=== PATIENT | female | born 1955 | race Caucasian/White ===

== ENCOUNTER 2017-03-08 12:20 | Day surgery (SDC) | payer OTHER ==
[~2017-03-08] VITALS: Ht 154.9 cm; Wt 96.5 kg
[~2017-03-08 12:20] MED LIST: DEXL60CA3; FAMO40 PO; HYDR1TAB94; METF500; MULVITA; NORT50; OMEP20ER; ONDA8ODT MM; OXYACE5T PO; ROSU5 PO; RXONDA4ODT MM; SERT50
== END 2017-03-08 16:52 | disposition home or self-care (01) ==
LOC: ORSCSDS 12:20
PROVIDERS: Podiatrist Foot & Ankle Surgery
PROC: 0LBT0ZZ Excision of Left Ankle Tendon, Open Approach (ICD-10-PCS; principal; 2017-03-08 13:45)
PROC: 0LQT0ZZ Repair Left Ankle Tendon, Open Approach (ICD-10-PCS; principal; 2017-03-08 13:45)
DX: M66.862 Spontaneous rupture of other tendons, left lower leg (principal); M77.42 Metatarsalgia, left foot; E66.01 Morbid (severe) obesity due to excess calories; Z68.41 Body mass index [BMI] 40.0-44.9, adult; Z87.891 Personal history of nicotine dependence; J45.909 Unspecified asthma, uncomplicated; Z79.899 Other long term (current) drug therapy
CPT/HCPCS: 88304; J0171; J0690; J1100; J2250; J2405; J3010; J7120

== ENCOUNTER → 2019-02-11 | Outpatient (CLI) | payer BC ==
[~2019-02-11] MED LIST changes: +ACIDOPHILUS1 EACH PO; +ALBU90OI INH; +ALPR.5 PO; +L-Lysine500 M1 PO; +METPHE5; +MULTIPLE VITAM1 EACH PO; +Mobic15 MG PO; +Norco 5-325 Ta1 EACH PO; +Nortriptyline H75 MG PO; +PANT40 PO; +RISP.5 PO; +SERT100 PO; +SPIR50 PO
== END | disposition home or self-care (01) ==
LOC: LAB SHORT 11:42 → PLD 11:42
DX: D22.61 Melanocytic nevi of right upper limb, including shoulder (principal); L81.4 Other melanin hyperpigmentation
CPT/HCPCS: 88305

== ENCOUNTER → 2019-02-18 | Outpatient (CLI) | payer BC | END | disposition home or self-care (01) | LOC: LAB SHORT 10:47 → PLD 10:47 | DX: D22.71 Melanocytic nevi of right lower limb, including hip (principal); D22.5 Melanocytic nevi of trunk | CPT/HCPCS: 88305; 88313 ==

== ENCOUNTER → 2019-02-24 | Outpatient (CLI) | payer BC | END | disposition home or self-care (01) | LOC: PLD 07:39 → LAB SHORT 07:39 | DX: D48.5 Neoplasm of uncertain behavior of skin (principal) | CPT/HCPCS: 88305 ==

== ENCOUNTER 2019-04-02 06:52 | Day surgery (SDC) | payer BC ==
[~2019-04-02] VITALS: Ht 154.9 cm; Wt 104.9 kg
--- NOTE | 2019-04-02 08:15 | NUR ---
04/02/19 0815 Traci Madrigal NEW RED/YELLOW PEDIATRIC SCOPE USED
== END 2019-04-02 09:11 | disposition home or self-care (01) ==
LOC: ORSCSDS 06:52
PROVIDERS: Student in an Organized Health Care Education/Training Program
PROC: 0DJD8ZZ Inspection of Lower Intestinal Tract, Via Natural or Artificial Opening Endoscopic (ICD-10-PCS; principal; 2019-04-02 08:00)
PROC: 0DB68ZX Excision of Stomach, Via Natural or Artificial Opening Endoscopic, Diagnostic (ICD-10-PCS; principal; 2019-04-02 08:00)
PROC: 0DB58ZX Excision of Esophagus, Via Natural or Artificial Opening Endoscopic, Diagnostic (ICD-10-PCS; principal; 2019-04-02 08:00)
PROC: 0DB78ZX Excision of Stomach, Pylorus, Via Natural or Artificial Opening Endoscopic, Diagnostic (ICD-10-PCS; principal; 2019-04-02 08:00)
DX: K21.9 Gastro-esophageal reflux disease without esophagitis (principal); R13.10 Dysphagia, unspecified; K20.8 Other esophagitis; Z86.010 Personal history of colon polyps; Z80.0 Family history of malignant neoplasm of digestive organs; E11.9 Type 2 diabetes mellitus without complications; E78.5 Hyperlipidemia, unspecified; E66.01 Morbid (severe) obesity due to excess calories; Z68.41 Body mass index [BMI] 40.0-44.9, adult; Z79.899 Other long term (current) drug therapy
CPT/HCPCS: 82947; 88305; 88312; 88341; 88342; J2250; J2405; J2704; J7120

== ENCOUNTER → 2019-07-28 | Outpatient (CLI) | payer BC ==
[2019-07-28 15:57] LABS: BASOPHILS ABSOLUTE AUTO 0.06 K/mm3 (0.00-0.23); BASOPHILS PERCENT AUTO 1 % (0-2); EOSINOPHILS ABSOLUTE AUTO 0.05 K/mm3 (0.00-0.68); EOSINOPHILS PERCENT AUTO 1 % (0-6); Hematocrit 38.9 % (33.0-51.0); IMMATURE GRAN ABSOLUTE AUTO 0.07 K/mm3 (0.00-0.10); IMMATURE GRAN PERCENT AUTO 1 % (0-1); LYMPHOCYTES ABSOLUTE AUTO 1.25 K/mm3 (0.84-5.20); LYMPHOCYTES PERCENT AUTO 11 % (21-46); MONOCYTES ABSOLUTE AUTO 0.56 K/mm3 (0.16-1.47); MONOCYTES PERCENT AUTO 5 % (4-13); Mean Corpuscular HGB 28.3 pg (26.0-34.0); Mean Corpuscular HGB Conc 33.4 g/dL (31.5-36.5); Mean Corpuscular Volume 85 fL (80-100); Mean Platelet Volume 10.8 fL (9.1-12.4); NEUTROPHILS ABSOLUTE AUTO 8.93 K/mm3 (1.96-9.15); NEUTROPHILS PERCENT AUTO 82 % (41-73); Platelet Count 212 K/mm3 (150-400); RDW Coefficient Variation 13.2 % (11.7-14.2); RDW Standard Deviation 41.1 fL (35.1-46.3); Red Blood Cell Count 4.59 M/mm3 (3.80-5.20); White Blood Cell Count 10.92 K/mm3 (4.00-11.30)
[2019-07-28 16:19] LABS: Anion Gap 7 mmol/L (6-16); Blood Urea Nitrogen 18 mg/dL (8-24); Bun/Creatinine Ratio 28.2 (12.0-20.0); CO2, Blood 26 mmol/L (21-32); Calcium, Blood 9.6 mg/dL (8.5-10.1); Chloride, Blood 100 mmol/L (98-108); Creatinine, Blood 0.64 mg/dL (0.40-1.00); Glomerular Filtration Rate >60 (60-); Glucose, Blood 117 mg/dL (70-99); Potassium, Blood 3.8 mmol/L (3.5-5.5); Sodium, Blood 133 mmol/L (136-145)
== END ==
LOC: LAB 15:50 → LAB SHORT 15:50
PROVIDERS: Physician Assistant
DX: R53.83 Other fatigue (principal); R50.9 Fever, unspecified
CPT/HCPCS: 80048; 85025

== ENCOUNTER → 2019-09-09 | Outpatient (CLI) | payer BC | END | disposition home or self-care (01) | LOC: LAB SHORT 13:55 → PLD 13:55 | DX: D22.61 Melanocytic nevi of right upper limb, including shoulder (principal) | CPT/HCPCS: 88305 ==

== ENCOUNTER → 2019-10-10 | Outpatient (CLI) | payer BC | END | disposition home or self-care (01) | LOC: LAB 14:52 → LAB SHORT 14:52 | DX: N39.0 Urinary tract infection, site not specified (principal) | CPT/HCPCS: 87086 ==

== ENCOUNTER → 2019-10-16 | Outpatient (CLI) | payer BC | END | disposition home or self-care (01) | LOC: LAB 16:30 → LAB SHORT 16:30 | DX: R10.9 Unspecified abdominal pain (principal); R30.0 Dysuria | CPT/HCPCS: 87086 ==

== ENCOUNTER 2020-01-20 07:13 | Day surgery (SDC) | payer BC ==
[~2020-01-20] VITALS: Ht 154.9 cm; Wt 109.8 kg
[2020-01-20] MEDS ORDERED: FAMO20 PO (07:43)
[2020-01-20] MEDS ORDERED: ASPI81CH PO (07:44)
[2020-01-20] MEDS ORDERED: BENADRYL25 M1 PO (07:44)
[2020-01-20] MEDS ORDERED: L-Lysine500 M1 PO (07:44)
[2020-01-20] MEDS ORDERED: VITAMIN D310 MC4 PO (07:45)
== END 2020-01-20 10:20 | disposition home or self-care (01) ==
LOC: ORSCSDS 07:13
PROVIDERS: Ophthalmology
PROC: 08RK3JZ Replacement of Left Lens with Synthetic Substitute, Percutaneous Approach (ICD-10-PCS; principal; 2020-01-20 08:30)
DX: H25.12 Age-related nuclear cataract, left eye (principal); Z99.81 Dependence on supplemental oxygen; G47.33 Obstructive sleep apnea (adult) (pediatric); Z87.891 Personal history of nicotine dependence; J44.9 Chronic obstructive pulmonary disease, unspecified; E66.01 Morbid (severe) obesity due to excess calories; Z68.42 Body mass index [BMI] 45.0-49.9, adult; J45.909 Unspecified asthma, uncomplicated; Z79.82 Long term (current) use of aspirin; Z79.899 Other long term (current) drug therapy
CPT/HCPCS: 82947; J2001; J2250; J3010; J3301; J7040; V2632

== ENCOUNTER → 2020-02-09 | Outpatient (CLI) | payer BC ==
[~2020-02-09] MED LIST changes: +ASPI81CH PO; +BENADRYL25 M1 PO; +FAMO20 PO; +VITAMIN D310 MC4 PO
== END | disposition home or self-care (01) ==
LOC: LAB SHORT 08:27 → PLD 08:27
DX: D22.61 Melanocytic nevi of right upper limb, including shoulder (principal)
CPT/HCPCS: 88305

== ENCOUNTER → 2020-05-24 | Outpatient (CLI) | payer BC ==
[2020-05-24 14:58] LABS: Source, Urine Clean Catch
[2020-05-24 17:12] LABS: Appearance, Urine Clear (Clear); Bilirubin, Urine Neg (Neg); Blood, Urine Neg (Neg); Color, Urine Yellow (P-Yellow); Glucose Qualitative, Urine Neg (Neg); Ketones, Urine Neg (Neg); Leukocyte Esterase, Urine Neg (Neg); Nitrite, Urine Neg (Neg); Protein, Urine Neg (Neg); Urobilinogen, Urine NORM (Normal)
== END ==
LOC: LAB SHORT 14:45 → LAB 14:45 → LAB FUT 05-12 15:45
PROVIDERS: Internal Medicine
DX: N39.0 Urinary tract infection, site not specified (principal); Z88.1 Allergy status to other antibiotic agents; Z88.8 Allergy status to other drugs, medicaments and biological substances; Z91.040 Latex allergy status
CPT/HCPCS: 81003

== ENCOUNTER → 2020-05-28 | Outpatient (CLI) | payer BC ==
[2020-05-29 19:39] LABS: Adenovirus F 40/41 Not Detected (NOT DETECT); Astrovirus Not Detected (NOT DETECT); Campylobacter Sp Not Detected (NOT DETECT); Cryptosporidium Not Detected (NOT DETECT); Cyclospora Cayetanensis Not Detected (NOT DETECT); E. Coli O157 Not Detected (NOT DETECT); Entamoeba Histolytica Not Detected (NOT DETECT); Enteroaggregative E. coli-EAEC Not Detected (NOT DETECT); Enteropathogenic E. coli-EPEC Not Detected (NOT DETECT); Enterotoxigenic E. coli-ETEC Not Detected (NOT DETECT); Giardia Lamblia Not Detected (NOT DETECT); Norovirus GI/GII Not Detected (NOT DETECT); Plesiomonas Shigelloides Not Detected (NOT DETECT); Rotavirus A Not Detected (NOT DETECT); Salmonella Sp Not Detected (NOT DETECT); Sapovirus Not Detected (NOT DETECT); Shiga Toxin-prod E. coli-STEC Not Detected (NOT DETECT); Shigella/Enteroin E. coli-EIEC Not Detected (NOT DETECT); Vibrio Cholerae Not Detected (NOT DETECT); Vibrio Sp Not Detected (NOT DETECT); Yersinia Enterocolitica Not Detected (NOT DETECT)
== END | disposition home or self-care (01) ==
LOC: LAB SHORT 17:00 → LAB 17:00
PROVIDERS: Physician Assistant
DX: R19.7 Diarrhea, unspecified (principal)
CPT/HCPCS: 0097U

== ENCOUNTER 2020-06-28 09:09 | Day surgery (SDC) | payer BC ==
[~2020-06-28] VITALS: Ht 154.9 cm; Wt 106.4 kg
== END 2020-06-28 11:35 | disposition home or self-care (01) ==
LOC: ORSCSDS 09:09
PROVIDERS: Student in an Organized Health Care Education/Training Program
PROC: 0DBN8ZX Excision of Sigmoid Colon, Via Natural or Artificial Opening Endoscopic, Diagnostic (ICD-10-PCS; principal; 2020-06-28 10:30)
PROC: 0DBK8ZX Excision of Ascending Colon, Via Natural or Artificial Opening Endoscopic, Diagnostic (ICD-10-PCS; principal; 2020-06-28 10:30)
PROC: 0DB68ZX Excision of Stomach, Via Natural or Artificial Opening Endoscopic, Diagnostic (ICD-10-PCS; principal; 2020-06-28 10:30)
PROC: 0DBL8ZX Excision of Transverse Colon, Via Natural or Artificial Opening Endoscopic, Diagnostic (ICD-10-PCS; principal; 2020-06-28 10:30)
DX: K21.9 Gastro-esophageal reflux disease without esophagitis (principal); K29.70 Gastritis, unspecified, without bleeding; K31.819 Angiodysplasia of stomach and duodenum without bleeding; D12.2 Benign neoplasm of ascending colon; D12.3 Benign neoplasm of transverse colon; Z12.11 Encounter for screening for malignant neoplasm of colon; Z80.0 Family history of malignant neoplasm of digestive organs; Z86.010 Personal history of colon polyps; I10 Essential (primary) hypertension; F90.9 Attention-deficit hyperactivity disorder, unspecified type; K76.0 Fatty (change of) liver, not elsewhere classified; F32.9 Major depressive disorder, single episode, unspecified; E66.01 Morbid (severe) obesity due to excess calories; Z68.41 Body mass index [BMI] 40.0-44.9, adult; Z79.899 Other long term (current) drug therapy; Z79.82 Long term (current) use of aspirin
CPT/HCPCS: 88305; 88341; 88342; A9270; J2704

== ENCOUNTER → 2020-10-31 | Outpatient (CLI) | payer SELFPAY ==
[2020-10-31 14:48] LABS: Source, Urine Clean Catch
[2020-10-31 17:49] LABS: Appearance, Urine Clear (Clear); Bilirubin, Urine Neg (Neg); Blood, Urine Neg (Neg); Color, Urine Yellow (P-Yellow); Glucose Qualitative, Urine Neg (Neg); Ketones, Urine Neg (Neg); Leukocyte Esterase, Urine 2+ (Neg); Nitrite, Urine Pos (Neg); Protein, Urine 1+ (Neg); Urobilinogen, Urine NORM (Normal)
[2020-10-31 18:11] LABS: Bacteria Many /hpf; Red Blood Cells, Urine Not Seen /hpf (0-2); Squamous Epithelial Cells Rare /hpf (Few)
== END | disposition home or self-care (01) ==
LOC: LAB SHORT 14:43 → LAB 14:43
PROVIDERS: Urology Female Pelvic Medicine and Reconstructive Surgery
DX: N39.0 Urinary tract infection, site not specified (principal)
CPT/HCPCS: 81001; 87077; 87086; 87186

== ENCOUNTER → 2021-01-31 | Outpatient (CLI) | payer BC | END | disposition home or self-care (01) | LOC: LAB SHORT 14:48 → LAB 14:48 | DX: D22.72 Melanocytic nevi of left lower limb, including hip (principal) | CPT/HCPCS: 88305 ==

== ENCOUNTER 2021-03-07 10:50 | Day surgery (SDC) | payer BC ==
[~2021-03-07] VITALS: Ht 154.9 cm; Wt 109.9 kg
--- NOTE | 2021-03-07 11:44 | NUR ---
03/07/21 1144 Stacy Beck PRP SENT TO THE OR
== END 2021-03-07 14:38 | disposition home or self-care (01) ==
LOC: ORSCSDS 10:50
PROVIDERS: Orthopaedic Surgery
PROC: 0RNK4ZZ Release Left Shoulder Joint, Percutaneous Endoscopic Approach (ICD-10-PCS; principal; 2021-03-07 12:30)
PROC: 0LM24ZZ Reattachment of Left Shoulder Tendon, Percutaneous Endoscopic Approach (ICD-10-PCS; principal; 2021-03-07 12:30)
DX: M75.122 Complete rotator cuff tear or rupture of left shoulder, not specified as traumatic (principal); S46.002A Unspecified injury of muscle(s) and tendon(s) of the rotator cuff of left shoulder, initial encounter; M75.22 Bicipital tendinitis, left shoulder; M75.42 Impingement syndrome of left shoulder; I10 Essential (primary) hypertension; J44.9 Chronic obstructive pulmonary disease, unspecified; Z87.891 Personal history of nicotine dependence; E66.01 Morbid (severe) obesity due to excess calories; Z68.42 Body mass index [BMI] 45.0-49.9, adult; F33.9 Major depressive disorder, recurrent, unspecified; Z79.899 Other long term (current) drug therapy; Z79.82 Long term (current) use of aspirin
CPT/HCPCS: 82947; C1713; J0171; J0690; J1100; J2250; J2405; J2704; J3010; J7120

== ENCOUNTER → 2021-08-24 | Outpatient (CLI) | payer SELFPAY ==
[2021-08-24 13:42] LABS: Source, Urine Clean Catch
[2021-08-24 15:19] LABS: Appearance, Urine Hazy (Clear); Bilirubin, Urine Neg (Neg); Blood, Urine 1+ (Neg); Color, Urine Amber (P-Yellow); Glucose Qualitative, Urine Neg (Neg); Ketones, Urine Neg (Neg); Leukocyte Esterase, Urine 3+ (Neg); Nitrite, Urine Pos (Neg); Protein, Urine 1+ (Neg); Urobilinogen, Urine NORM (Normal)
[2021-08-24 15:30] LABS: Bacteria Many /hpf; Hyaline Casts 0-2 /lpf (0-2); Squamous Epithelial Cells Mod /hpf (Few); Transitional Epithelial Cells Rare /hpf (0-Rare); White Blood Cells, Urine 25-50 /hpf (0-5)
== END | disposition home or self-care (01) ==
LOC: LAB SHORT 13:41 → LAB 13:41
PROVIDERS: Urology Female Pelvic Medicine and Reconstructive Surgery
DX: N39.0 Urinary tract infection, site not specified (principal)
CPT/HCPCS: 81001; 87077; 87086; 87147; 87186

== ENCOUNTER 2021-12-17 17:12 | Emergency (ER) | payer MEDICARE ==
[~2021-12-17] VITALS: Ht 154.9 cm; Wt 111.1 kg
[2021-12-17] MEDS ORDERED: TRULICITY0.75 MG/01 SC (17:36)
[2021-12-17] MEDS ORDERED: VITAMIN D31000 UNI1 PO (17:36)
[2021-12-17] MEDS ORDERED: ASCO500 PO (17:36)
== END 2021-12-17 20:18 | disposition home or self-care (01) ==
LOC: ER 17:12
DX: M79.661 Pain in right lower leg (principal); Z88.0 Allergy status to penicillin; Z88.8 Allergy status to other drugs, medicaments and biological substances; Z91.040 Latex allergy status; Z79.899 Other long term (current) drug therapy; Z96.653 Presence of artificial knee joint, bilateral; Z87.891 Personal history of nicotine dependence
CPT/HCPCS: 36415; 93971; 99283-25

== ENCOUNTER → 2022-01-12 | Outpatient (CLI) | payer MEDICARE ==
[~2022-01-12] MED LIST changes: +ASCO500 PO; +TRULICITY0.75 MG/01 SC; +VITAMIN D31000 UNI1 PO
[2022-01-12 16:49] LABS: Source, Urine Clean Catch
[2022-01-12 18:54] LABS: Appearance, Urine Clear (Clear); Bilirubin, Urine Neg (Neg); Blood, Urine Neg (Neg); Color, Urine Yellow (P-Yellow); Glucose Qualitative, Urine Neg (Neg); Ketones, Urine Neg (Neg); Leukocyte Esterase, Urine Neg (Neg); Nitrite, Urine Neg (Neg); Protein, Urine Neg (Neg); Urobilinogen, Urine NORM (Normal)
== END | disposition home or self-care (01) ==
LOC: LAB SHORT 16:48 → LAB 16:48 → LAB FUT 01-01 08:40
PROVIDERS: Internal Medicine
DX: N39.0 Urinary tract infection, site not specified (principal); R30.0 Dysuria
CPT/HCPCS: 81003

== ENCOUNTER 2023-02-09 11:27 | Emergency (ER) | payer MEDICARE ==
[~2023-02-09] VITALS: Ht 154.9 cm; Wt 107.5 kg
[2023-02-09 13:28] VITALS: BP 138/72
== END 2023-02-09 13:29 | disposition home or self-care (01) ==
LOC: ER 11:27
DX: H57.12 Ocular pain, left eye (principal); I51.89 Other ill-defined heart diseases; J44.9 Chronic obstructive pulmonary disease, unspecified; Z77.098 Contact with and (suspected) exposure to other hazardous, chiefly nonmedicinal, chemicals; Z88.8 Allergy status to other drugs, medicaments and biological substances; Z88.1 Allergy status to other antibiotic agents; Z91.040 Latex allergy status; Z79.899 Other long term (current) drug therapy; Z87.891 Personal history of nicotine dependence
CPT/HCPCS: 99283; A9270

== ENCOUNTER 2024-03-25 23:16 | Emergency (ER) | payer MEDICARE, BC ==
[~2024-03-25] VITALS: Ht 154.9 cm; Wt 113.4 kg
[2024-03-26] MEDS ORDERED: CEPH500 PO (03:21)
[2024-03-26] MEDS ORDERED: Diphth,Pertuss(Acell),Tet Vac 0.5 ML VIAL IM ONE (03:30)
[2024-03-26] MEDS ORDERED: Cephalexin Monohydrate 500 MG Cap PO ONE (03:30)
[2024-03-26 03:56] VITALS: BP 143/64
== END 2024-03-26 03:59 | disposition home or self-care (01) ==
LOC: ER 23:16
DX: S61.211A Laceration without foreign body of left index finger without damage to nail, initial encounter (principal); J44.9 Chronic obstructive pulmonary disease, unspecified; M19.90 Unspecified osteoarthritis, unspecified site; W26.8XXA Contact with other sharp object(s), not elsewhere classified, initial encounter; Z23 Encounter for immunization; Z87.891 Personal history of nicotine dependence; Z79.899 Other long term (current) drug therapy; Z91.040 Latex allergy status; Z88.0 Allergy status to penicillin; Z88.8 Allergy status to other drugs, medicaments and biological substances
CPT/HCPCS: 12002; 73140; 90471; 90715; 99283-25; A9270

== ENCOUNTER → 2024-04-21 | Outpatient (CLI) | payer MEDICARE, BC ==
[~2024-04-21] MED LIST changes: +CEPH500 PO
[2024-04-23 17:00] LABS: Adenovirus F 40/41 Not Detected (NOT DETECT); Astrovirus Not Detected (NOT DETECT); Campylobacter Sp Not Detected (NOT DETECT); Cryptosporidium Not Detected (NOT DETECT); Cyclospora Cayetanensis Not Detected (NOT DETECT); E. Coli O157 Not Detected (NOT DETECT); Entamoeba Histolytica Not Detected (NOT DETECT); Enteroaggregative E. coli-EAEC Not Detected (NOT DETECT); Enteropathogenic E. coli-EPEC Not Detected (NOT DETECT); Enterotoxigenic E. coli-ETEC Not Detected (NOT DETECT); Giardia Lamblia Not Detected (NOT DETECT); Norovirus GI/GII Not Detected (NOT DETECT); Plesiomonas Shigelloides Not Detected (NOT DETECT); Rotavirus A Not Detected (NOT DETECT); Salmonella Sp Not Detected (NOT DETECT); Sapovirus Not Detected (NOT DETECT); Shiga Toxin-prod E. coli-STEC Not Detected (NOT DETECT); Shigella/Enteroin E. coli-EIEC Not Detected (NOT DETECT); Vibrio Cholerae Not Detected (NOT DETECT); Vibrio Sp Not Detected (NOT DETECT); Yersinia Enterocolitica Not Detected (NOT DETECT)
== END | disposition home or self-care (01) ==
LOC: LAB SHORT 15:00 → LAB 15:00
PROVIDERS: Internal Medicine
DX: R19.7 Diarrhea, unspecified (principal)
CPT/HCPCS: 87507

== ENCOUNTER → 2024-09-10 | Outpatient (CLI) | payer MEDICARE, BC | END | disposition home or self-care (01) | LOC: LAB 15:04 → LAB SHORT 15:04 | DX: N39.0 Urinary tract infection, site not specified (principal) | CPT/HCPCS: 87086 ==